=== PATIENT | male | born 1970 | race Caucasian/White ===

== ENCOUNTER 2017-06-19 13:06 | Inpatient (IN) ==
--- NOTE | 2017-06-19 14:03 | XRay Report ---
INDICATION: Dyspnea. Influenza. TECHNIQUE: PA and lateral upright chest x-ray COMPARISON: Chest x-rays dated 05/16/2017 and 03/02/2016 FINDINGS:Diaphragms are flattened and there is increased AP diameter of the chest. Appearance is consistent with underlying COPD. No change in heart size. There are diffuse interstitial infiltrates which are new since previous examination. Appearance is consistent with interstitial pneumonia. Viral pneumonia should be considered. No parenchymal consolidation. No parenchymal mass. There is a more focal density in the right midlung but no mass was present on the prior examination and this is not considered consistent with neoplasm. Follow-up radiographs recommended. Minimal blunting of the posterior costophrenic sulci consistent with tiny effusions. IMPRESSION: 1. Acute diffuse interstitial infiltrates. 2. Appearance is consistent with pneumonia and viral pneumonia is likely Interpreted and Authenticated by: Eliceo Hinkle 06/19/17
[2017-06-19 15:05] LABS: Basophils # (Auto) 0 K/mcL (0.0-0.3); Basophils % (Auto) 0 % (0.0-2.0); Eosinophils # (Auto) 0 K/mcL (0.0-0.7); Eosinophils % (Auto) 0.1 % (0.0-7.0); Granulocytes % (Auto) 85.4 % (38.0-78.0); Lymphocytes # (Auto) 1.3 K/mcL (1.5-4.8); Lymphocytes % (Auto) 5.8 % (15.5-49.0); Mean Cell Volume 90.5 fL (80.0-100.0); Mean Corpuscular HGB Conc 33.2 g/dL (31.0-36.0); Mean Corpuscular Hemoglobin 30.1 pg (26.0-34.0); Monocytes % (Auto) 8.7 % (1.0-12.0); Platelet Count 497 K/mcL (140-440); RBC 5.54 M/mcL (4.50-5.90); Red Cell Distribution Width 13.8 % (11.5-14.5)
[2017-06-19 15:22] LABS: ALT/SGPT 15 U/l (0-40); Albumin 3.8 gm/dL (3.2-5.2); Albumin/Globulin Ratio 0.8 (1.0-2.3); Alkaline Phosphatase 136 U/L (39-117); Blood Urea Nitrogen 15 mg/dl (6-20)
[2017-06-19] MEDS ORDERED: 0.9 % SODIUM CHLORIDE 1,000 ML IV ONE (15:23)
[2017-06-19] MEDS ORDERED: AZITHROMYCIN 500 MG in DEXTROSE 5% IN WATER 250 ML IV ONE (15:31)
[2017-06-19] MEDS ORDERED: IPRATROPIUM/ALBUTEROL 3 ML AMPUL.NEB NEB ONE ×2 (16:22→19:17)
[2017-06-19] MEDS ORDERED: cefTRIAXone 2 GM VIAL IV ONE ×2 (17:10→18:23)
[2017-06-19] MEDS ORDERED: VANCOMYCIN 1,500 MG in 0.9 % SODIUM CHLORIDE 500 ML IV ONE (17:10)
--- NOTE | 2017-06-19 17:25 | Internal Med History&Physical ---
Medical - H&P: HPI Patient information: Note initiated : 06/19/17 at 5:24 pm Service Date, if different from initiated Date: [] Patient: Austin Landry a 46 y/o M admitted on for Flu. Chief Complaint: [] History of present illness: Mr. Landry is a 46 year old Male with h/o PTSD/ h/o asthma, presents to the ER today with complaints of shortness of breath going on for the last 2 weeks. The patient notes that he has not been feeling well over the last 2 weeks, he had sick contacts with flu like symptoms and he also developed same, he was seen by his PCP and given 5 day course of tamiflu which he took, he finished his course 4 days ago, since then he has not been feeling well, he notes his breatihing has gotten worse, his is having headache and dizziness, abdominal pain, poor appetitie and worsening shortness of breath. He notes he is coughing up large amounts of sputum. Denies any hemoptysis. Given his worsening condition he decided to c ome to the ER for further evaluation. In the ER he was noted to be afebrile and tachcardic and tachypenic, he had elevated Wbc count to 23K, his lac was normal, HR 125, RR 25, his Chest X ray showed bi interstitial pneumonia. ABG was 7.46/40/57 The patient on my exam was in mild to moderate resp distress with tor exp wheezing, was admitted to the PCU for further management. All systems: reviewed and no additional remarkable complaints except as stated ( as per HPI) Medical - H&P: PMH Medical history: asthma anxiety ptsd smoker Hep C Surgical history: back surgery Family history: reviewed and not pertinent Social history: smoker, quit 2 weeks ago? h/o etoh use in the past h/o substance abuse including IV drugs in the past. denies active use Medical - H&P: Meds Home Medications Medication Instructions Recorded Confirmed Type Albuterol Sulfate [Albuterol 8.5 gm IH Q4HP PRN 02/16/15 05/18/17 History Sulfate Hfa] Azithromycin [Zithromax] 250 mg PO DAILY #4 tab 05/16/17 05/18/17 Rx Ipratropium/Albuterol [Duoneb] 3 ml NEB Q4HRT #60 ampul.neb 05/16/17 05/18/17 Rx predniSONE [Prednisone] 20 mg PO DAILY #23 tab 05/16/17 05/18/17 Rx Allergies Allergy/AdvReac Type Severity Reaction Status Date / Time codeine Allergy Verified 06/19/17 13:13 morphine Allergy Verified 05/18/17 11:35 Penicillins Allergy Verified 05/18/17 11:35 Medical - H&P: Exam - Constitutional Vitals: Temp Pulse Resp BP Pulse Ox 96.7 F L 125 H 26 H 144/102 94 06/19/17 13:09 06/19/17 14:12 06/19/17 13:09 06/19/17 14:10 06/19/17 14:12 Exam: GENERAL: The patient is a well-developed, well-nourished in no apparent distress. Is alert and oriented x3. VITAL SIGNS: Reviewed and as noted elsewhere. HEENT: Head is normocephalic and atraumatic. Extraocular muscles are intact. Pupils are equal, round, and reactive to light. Nares appeared normal. Mouth appears any without lesions. Mucous membranes are moist. NECK: Normal to inspection, Supple, No lymphadenopathy or thyromegaly. LUNGS: Air entry equal on both sides but significantly dimished bilaterally, tor exp wheeze present, no crackles or rhonchi noted. Pt was in mod resp distress ,needing accesory muscle use, and speaking 5-6 words at a time, HEART: achycardic rate and rhythm normal, S1 and S2 heard, no Gallop, S3 or Rub Noted, No Gross murmur heard. ABDOMEN: Soft, nontender, and nondistended. Positive bowel sounds. No hepatosplenomegaly was noted. EXTREMITIES: No cyanosis, clubbing, rash, lesions or edema. NEUROLOGIC: Cranial nerves II through XII are grossly intact. Motor and Sensory System Grossly Intact PSYCHIATRIC: Normal affect, Normal Mood. Appropriate Behavior. SKIN: No ulceration or wounds noted, No jaundice, No rash noted. Multiple tatoos Medical - H&P: Reslt - Labs CBC & Chem 7: 06/19/17 14:10 06/19/17 14:10 Labs: Short CBC 06/19/17 Range/Units 14:10 WBC 23.1 H (4.5-11.0) K/mcL Hgb 16.6 H (13.5-16.5) g/dL Hct 50.1 (41.0-55.0) % Plt Count 497 H (140-440) K/mcL BMP 06/19/17 14:10 Sodium 140 Potassium 3.7 Chloride 96 Carbon Dioxide 28 BUN 15 Creatinine 1.1 Glucose 116 H Calcium 9.3 Liver Function 06/19/17 Range/Units 14:10 Total Bilirubin 0.7 (0.0-1.0) mg/dL AST 21 (0-37) U/l ALT 15 (0-40) U/l Alkaline Phosphatase 136 H (39-117) U/L Albumin 3.8 (3.2-5.2) gm/dL Medical - H&P: A/P - Narrative A/P Narrative: A/P Acute Hypoxic Resp failure: pt was on 5L oxygen on my eval, was tachypneic using accessory muscles, will start him on bipap and see how he does, intubate if resp condition worsens. Pneumonia: Tor interstitial pneumonia, etiology likely viral with secondary bacterial infection. IV vanco, azithromycin, and rocephin, Po tamiflu to continue for now. Check HIV patient verbally consented Sepsis: due to above, lactate and bp is normal, IV fluids for now, monitor anxiety: Resume home meds once verifed, ativan prn DVT enoxaparin sq regular diet Full code.
[2017-06-19] MEDS ORDERED: VANCOMYCIN PER PHARMACY IV ONE (18:23)
[2017-06-19] MEDS ORDERED: ONDANSETRON 4 MG/2 ML VIAL IV PRN (18:23)
[2017-06-19] MEDS ORDERED: cefTRIAXone 2 GM in DEXTROSE 5% IN WATER 50 ML IV SCH (18:23)
[2017-06-19] MEDS ORDERED: ACETAMINOPHEN 325 MG TABLET PO PRN (18:23)
[2017-06-19] MEDS: IPRATROPIUM/ALBUTEROL 3 ML AMPUL.NEB NEB SCH ×2 (19:15→23:14)
[2017-06-19] MEDS ORDERED: VANCOMYCIN PER PHARMACY IV SCH (19:45)
[2017-06-19] MEDS: LORazepam 2 MG/ML VIAL IV PRN ×2 (20:00→23:45)
[2017-06-19] MEDS: methylPREDNISolone SOD SUCC 125 MG/2 ML VIAL IV SCH ×2 (20:00→21:53)
[2017-06-19] MEDS: ENOXAPARIN 40 MG/0.4 ML SYRINGE SQ SCH (20:00)
[2017-06-19] MEDS: VANCOMYCIN 1,500 MG in 0.9 % SODIUM CHLORIDE 500 ML IV SCH (20:02)
[2017-06-19] MEDS: OSELTAMIVIR PHOSPHATE 75 MG CAPSULE PO SCH (20:47)
--- NOTE | 2017-06-19 21:27 | Emergency Department Note ---
SOB HPI - General Chief Complaint: Shortness of Breath/Dyspnea Stated Complaint: Flu Time Seen by Provider: 06/19/17 13:35 Source: patient Mode of arrival: ambulatory Limitations: no limitations - History of Present Illness Patient presents today with severe cough, increased sputum production, and shortness of breath. Reports he was diagnosed with Influenza B at [facility] last week was given a prescription of Tamiflu which he took appropriately and finished 4 days ago, in the last 36 hours the cough and began to worsen, his aches and pains began worsen and his shortness of breath and inability to get a full breath worsened. States he has no energy and he's been coughing up a significant amount of greenish yellow phlegm, and feels like something heavy on his chest. Denies nausea vomiting diarrhea or fever, I did read the notes from [facility] MD Complaint: shortness of breath, cough Onset (ago): day(s) Context: recent illness Severity: severe Consistency/Duration: constant Improves with: nothing Worsens with: exertion, movement, coughing Known history of: COPD Associated symptoms: Reports: cough, sputum production, abdominal pain. Denies : fever, wheezing, rash Treatment prior to arrival: bronchodilator - Related Data Home oxygen amount: none Home Medications Medication Instructions Recorded Confirmed Albuterol Sulfate [Albuterol 8.5 gm IH Q4HP PRN 02/16/15 05/18/17 Sulfate Hfa] Previous Rx's Medication Instructions Recorded Azithromycin [Zithromax] 250 mg PO DAILY #4 tab 05/16/17 Ipratropium/Albuterol [Duoneb] 3 ml NEB Q4HRT #60 ampul.neb 05/16/17 predniSONE [Prednisone] 20 mg PO DAILY #23 tab 05/16/17 Allergies Allergy/AdvReac Type Severity Reaction Status Date / Time codeine Allergy Severe Anaphylaxis Verified 06/19/17 20:32 morphine Allergy Verified 05/18/17 11:35 Penicillins Allergy Verified 05/18/17 11:35 Review of Systems All systems ED: reviewed and negative except as stated. Past Medical History - Past Medical History Medical history: Reports: asthma, liver disease (Hepatitis), other (Hearing loss ). Denies: cancer, COPD, DM, hypertension (But has been elevated in the past.) , thyroid disease Psychiatric history: Reports: anxiety, PTSD Surgical history ED: Reports: non-contributory - Social History smoking status: Former smoker Alcohol use: Reports: Occasionally Drug use: Reports: marijuana Physical Exam Limitations: no limitations General appearance: alert, anxious Head: atraumatic, normocephalic Eye: Present: PERRL ENT: normal exam Neck: Present: normal inspection, full ROM Location: decreased breath sounds: Left, Right, Upper, Lower Abdominal: Present: soft, tenderness, guarding (with palpation), normal bowel sounds. Absent: distention, rebound, rigidity Back: Present: tenderness, muscle spasm, paraspinal tenderness. Absent: full ROM Neurological: Present: alert, oriented X3 Psychiatric: Present: anxious Skin: Present: warm, dry. Absent: rash Course Vital Signs Temperature 96.7 F L 06/19/17 13:09 Pulse Rate 123 H 06/19/17 13:09 Respiratory Rate 26 H 06/19/17 13:09 Blood Pressure 186/163 06/19/17 13:09 Pulse Oximetry (%) 90 06/19/17 13:09 Temperature 96.7 F L 06/19/17 18:21 Pulse Rate 121 H 06/19/17 21:00 Respiratory Rate 26 H 06/19/17 21:00 Blood Pressure 148/91 06/19/17 21:00 Pulse Oximetry (%) 94 06/19/17 21:00 Shortness of Breath/Dyspnea - Lab Data Lab results reviewed: Yes I reviewed the patient's lab results. Result diagrams: 06/19/17 14:10 06/19/17 14:10 Lab Results 06/19/17 06/19/17 06/19/17 Range/Units 14:10 14:10 14:10 WBC 23.1 H (4.5-11.0) K/mcL RBC 5.54 (4.50-5.90) M/mcL Hgb 16.6 H (13.5-16.5) g/dL Hct 50.1 (41.0-55.0) % MCV 90.5 (80.0-100.0) fL MCH 30.1 (26.0-34.0) pg MCHC 33.2 (31.0-36.0) g/dL RDW 13.8 (11.5-14.5) % Plt Count 497 H (140-440) K/mcL MPV 8.8 (7.4-10.4) fL Gran % 85.4 H (38.0-78.0) % Lymph % (Auto) 5.8 L (15.5-49.0) % [place] % (Auto) 8.7 (1.0-12.0) % Eos % (Auto) 0.1 (0.0-7.0) % Baso % (Auto) 0 (0.0-2.0) % Gran # 19.7 H (1.8-8.0) K/mcL Lymph # (Auto) 1.3 L (1.5-4.8) K/mcL [place] # (Auto) 2.0 H (0.1-0.9) K/mcL Eos # (Auto) 0 (0.0-0.7) K/mcL Baso # (Auto) 0 (0.0-0.3) K/mcL Sodium 140 (133-145) mmol/L Potassium 3.7 (3.3-5.1) mmol/L Chloride 96 (96-108) mmol/L Carbon Dioxide 28 (22-30) mmol/L Anion Gap 16.0 (8-16) BUN 15 (6-20) mg/dl Creatinine 1.1 (0.7-1.2) mg/dl GFR Calculation 81 Glucose 116 H (70-105) mg/dL Calcium 9.3 (8.6-10.4) mg/dl Total Bilirubin 0.7 (0.0-1.0) mg/dL AST 21 (0-37) U/l ALT 15 (0-40) U/l Alkaline Phosphatase 136 H (39-117) U/L Total Protein 8.4 (5.9-8.4) gm/dL Albumin 3.8 (3.2-5.2) gm/dL Globulin 4.6 H (2.2-3.7) gm/dL Albumin/Globulin Ratio 0.8 L (1.0-2.3) HIV 1&2 Ag/Ab, 4th Gen Non-reactive - Radiology Data Radiology results reviewed: Yes I reviewed the patient's radiology results. Disposition Pt seen by SAWMILLING OPERATOR/PA only: No Clinical Impression: Pneumonia Summary: (-) Flu Swab Discussed this case on multiple occasions with Dr. Munoz Discussed with the patient and his , with his laboratory workup and x-rays, and admittance to the hospital for further evaluation and treatment, I called the hospitalist, Dr. Albright, who came down and evaluated the patient, he asked me to give the patient Rocephin 2 gram and Vancomycin 1500 mg which we did and admitted him, Patient was turned over to Dr. Albright Disposition: Xfer As Inpt ([facility]) Condition: Undetermined
[2017-06-19] MEDS: 0.9 % SODIUM CHLORIDE 10 ML SYRINGE IV SCH (21:52)
[2017-06-20] MEDS: IPRATROPIUM/ALBUTEROL 3 ML AMPUL.NEB NEB SCH ×6 (02:23→22:46)
[2017-06-20 05:02] LABS: Basophils # (Auto) 0 K/mcL (0.0-0.3); Basophils % (Auto) 0 % (0.0-2.0); Eosinophils # (Auto) 0 K/mcL (0.0-0.7); Eosinophils % (Auto) 0 % (0.0-7.0); Granulocytes % (Auto) 93.1 % (38.0-78.0); Lymphocytes # (Auto) 1.2 K/mcL (1.5-4.8); Lymphocytes % (Auto) 4.6 % (15.5-49.0); Mean Cell Volume 90.2 fL (80.0-100.0); Mean Corpuscular HGB Conc 32.9 g/dL (31.0-36.0); Mean Corpuscular Hemoglobin 29.7 pg (26.0-34.0); Monocytes # (Auto) 0.6 K/mcL (0.1-0.9); Monocytes % (Auto) 2.3 % (1.0-12.0); Platelet Count 507 K/mcL (140-440); RBC 5.16 M/mcL (4.50-5.90)
[2017-06-20 05:18] LABS: ALT/SGPT 16 U/l (0-40); Albumin 3.1 gm/dL (3.2-5.2); Albumin/Globulin Ratio 0.7 (1.0-2.3); Alkaline Phosphatase 150 U/L (39-117); Bilirubin,Direct < 0.2 mg/dL (0.0-0.3); Blood Urea Nitrogen 16 mg/dl (6-20); Gamma Glutamyl Transpeptidase 67 U/L (8-61); Uric Acid 5.1 mg/dL (2.5-8.0)
[2017-06-20] MEDS: methylPREDNISolone SOD SUCC 125 MG/2 ML VIAL IV SCH ×3 (05:58→21:49)
[2017-06-20] MEDS: 0.9 % SODIUM CHLORIDE 10 ML SYRINGE IV SCH ×3 (05:59→21:50)
[2017-06-20] MEDS: PANTOPRAZOLE 40 MG TABLET PO SCH (07:30)
[2017-06-20] MEDS: OSELTAMIVIR PHOSPHATE 75 MG CAPSULE PO SCH ×2 (08:26→20:47)
[2017-06-20] MEDS: AZITHROMYCIN 250 MG TABLET PO SCH (08:26)
[2017-06-20] MEDS: VANCOMYCIN 1,500 MG in 0.9 % SODIUM CHLORIDE 500 ML IV SCH ×2 (08:26→20:46)
[2017-06-20] MEDS: ENOXAPARIN 40 MG/0.4 ML SYRINGE SQ SCH (08:26)
[2017-06-20] MEDS: cefTRIAXone 2 GM VIAL IV SCH (08:28)
--- NOTE | 2017-06-20 08:46 | Emergency Department Note ---
ED Note Addendum Note Addendum: I saw this patient with Konstantin Olivares-please see his note. I agree with his evaluation management and documentation. In particular this patient is having respiratory complications of influenza B and needed to be admitted
--- NOTE | 2017-06-20 13:06 | Internal Med Progress Note ---
Medical - PN: Subj Patient information: Note initiated : 06/20/17 at 1:02 pm Service Date, if different from initiated Date: [] Patient: Austin Landry a 46 y/o M admitted on 06/19/17 for Flu. Chief Complaint: [] Interval history: Mr. Landry is a 46 year old Male with h/o PTSD/ h/o asthma, presents to the ER today with complaints of shortness of breath going on for the last 2 weeks. The patient notes that he has not been feeling well over the last 2 weeks, he had sick contacts with flu like symptoms and he also developed same, he was seen by his PCP and given 5 day course of tamiflu which he took, he finished his course 4 days ago, since then he has not been feeling well, he notes his breatihing has gotten worse, his is having headache and dizziness, abdominal pain, poor appetitie and worsening shortness of breath. He notes he is coughing up large amounts of sputum. Denies any hemoptysis. Given his worsening condition he decided to c ome to the ER for further evaluation. In the ER he was noted to be afebrile and tachcardic and tachypenic, he had elevated Wbc count to 23K, his lac was normal, HR 125, RR 25, his Chest X ray showed bi interstitial pneumonia. ABG was 7.46/40/57 The patient on my exam was in mild to moderate resp distress with tor exp wheezing, was admitted to the PCU for further management. Jun 20 Patient seen examined, still has cough,b ut feels much better was on bipap all night this AM on 7-8L oxygen but much less tachypenic wbc however worsened today,b ut pt is clinically better. Pertinent ROS: Denies headache, dizziness Denies chest pain, palpitations stable, slightly improving cough and shortness of breath Denies abdominal pain, nausea or vomiting. - Constitutional Vitals: Vital Signs Temp Pulse Resp BP Pulse Ox 97.2 F 99 H 20 118/89 94 06/20/17 09:02 06/20/17 11:33 06/20/17 11:33 06/20/17 11:02 06/20/17 11:02 Period Temp Pulse Resp BP Sys/Haile Pulse Ox Last 24 Hr 96.7 F-99.7 F 41-136 17-31 118-186/79-163 78-97 Intake and Output 06/19/17 06/20/17 06/20/17 21:59 05:59 13:59 Intake Total 2330 / 2330 540 / 540 Output Total 550 / 550 Balance 2330 / 2330 -10 / -10 Weight 197 lb Intake & Output: Intake & Output 06/19/17 06/20/17 06/20/17 21:59 05:59 13:59 Intake Total 2330 / 2330 540 / 540 Output Total 550 / 550 Balance 2330 / 2330 -10 / -10 Weight 197 lb Intake: IV 1250 / 1250 Sodium Chloride 0.9% 1,000 ml @ 1000 / 1000 Wide Open IV BOLUS ONE Rx#: [id number] Zithromax 500 mg In Dextrose 5% 250 / 250 in Water 250 ml @ 250 mls/hr IV ONCE ONE Rx#:[id number] Oral 1080 / 1080 540 / 540 Output: Urine Catheter Amount 550 / 550 Other: # Voids 1 Exam: Constitutional; Afebrile, cooperative, alert, not in distress. Eyes- No icterus, , No periorbital swelling Ears- Ext ear normal, hearing normal to conversation. Neck- Midline trachea, supple Respiratory system: Air Entry equal on both sides, improved from yesterday, tor crackles basilar, prolonged exp phase. CVS- Rate tachycardic rhythm regular, S1,S2 heard, no gallop, no rub. Abdomen- Soft nontender abdomen, no organomegaly, no tenderness, no guarding or rigidity, [employer]ICIAN- AOOx3, moving all extremities, no gross focal deficit noted. Medical - PN: Obj Da - Labs CBC & Chem 7: 06/20/17 03:45 06/20/17 03:45 Labs: Abnormal Lab Results 06/20/17 06/20/17 06/19/17 03:45 03:45 14:10 WBC 25.1 H Hgb Plt Count 507 H Gran % 93.1 H Lymph % (Auto) 4.6 L Gran # 23.3 H Lymph # (Auto) 1.2 L [place] # (Auto) Glucose 184 H 116 H Phosphorus 5.2 H Magnesium 2.8 H GGT 67 H Alkaline Phosphatase 150 H 136 H Albumin 3.1 L Globulin 4.6 H 4.6 H Albumin/Globulin Ratio 0.7 L 0.8 L 06/19/17 14:10 WBC 23.1 H Hgb 16.6 H Plt Count 497 H Gran % 85.4 H Lymph % (Auto) 5.8 L Gran # 19.7 H Lymph # (Auto) 1.3 L [place] # (Auto) 2.0 H Glucose Phosphorus Magnesium GGT Alkaline Phosphatase Albumin Globulin Albumin/Globulin Ratio Meds: Medications Acetaminophen (Tylenol) 650 mg PO Q4-6HP PRN PRN Reason: PAIN/FEVER > 101 Albuterol/Ipratropium (Duoneb) 3 ml NEB Q4HRT [facility] Last Admin: 06/20/17 11:31 Dose: 3 ml Azithromycin (Zithromax) 250 mg PO DAILY [facility] Stop: 06/23/17 09:01 Last Admin: 06/20/17 08:26 Dose: 250 mg Ceftriaxone Sodium (Rocephin) 2 gm IV Q24H [facility] Last Admin: 06/20/17 08:28 Dose: 2 gm Enoxaparin Sodium (Lovenox) 40 mg SQ DAILY [facility] Last Admin: 06/20/17 08:26 Dose: 40 mg Vancomycin HCl 1,500 mg/ (Sodium Chloride) 500 mls @ 333.3 mls/hr IV Q12H [facility] Last Admin: 06/20/17 08:26 Dose: 333 mls/hr Lorazepam (Ativan) 0.5 mg IV Q4HP PRN PRN Reason: ANXIETY/SEDATION Last Admin: 06/19/17 23:45 Dose: 0.5 mg Methylprednisolone Sodium Succinate (Solu-Medrol) 62.5 mg IV Q8 [facility] Last Admin: 06/20/17 05:58 Dose: 62.5 mg Ondansetron HCl (Zofran) 4 mg IV Q4-6HP PRN PRN Reason: Nausea And Vomiting Oseltamivir Phosphate (Tamiflu) 75 mg PO BID [facility] Stop: 06/24/17 09:01 Last Admin: 06/20/17 08:26 Dose: 75 mg Pantoprazole Sodium (Protonix) 40 mg PO QAMAC [facility] Last Admin: 06/20/17 07:30 Dose: 40 mg Sodium Chloride (Saline Flush) 10 ml IV Q8 [facility] Last Admin: 06/20/17 05:59 Dose: 10 ml Vancomycin HCl (Vancomycin Per Pharmacy) 1 order IV UD [facility] Medical - PN: A/P - Time Spent With Patient Total time spent is greater than 50% in coordination of care (as documented) at patient's floor/unit and/or counseling patient: - Narrative A/P Narrative: A/P Acute Hypoxic Resp failure: on bipap overnight, on 7-8 L oxygen via [place] this AM, prn biapap for now, monitor closely, Pneumonia: Tor interstitial pneumonia, etiology likely viral with secondary bacterial infection. IV vanco, azithromycin, and rocephin, Po tamiflu to continue for now. HIV is negative. Sepsis: due to above, lactate and bp is normal, IV fluids for now, monitor, clinically improving but wbc is high Asthma exacerbtaion: on iv steroids, and duonebs, breathing is better, continue same, anxiety: ativan prn DVT enoxaparin sq regular diet Full code. Medical - PN: Qual - VTE Deep Vein Thrombosis/Pulmonary Embolism Present on Admission: No
[2017-06-21] MEDS: IPRATROPIUM/ALBUTEROL 3 ML AMPUL.NEB NEB SCH ×6 (02:53→22:44)
[2017-06-21] MEDS: methylPREDNISolone SOD SUCC 125 MG/2 ML VIAL IV SCH ×2 (05:43→13:46)
[2017-06-21] MEDS: 0.9 % SODIUM CHLORIDE 10 ML SYRINGE IV SCH ×4 (05:44→21:15)
[2017-06-21 05:53] LABS: Basophils # (Auto) 0 K/mcL (0.0-0.3); Basophils % (Auto) 0 % (0.0-2.0); Eosinophils # (Auto) 0 K/mcL (0.0-0.7); Eosinophils % (Auto) 0 % (0.0-7.0); Granulocytes % (Auto) 90.5 % (38.0-78.0); Lymphocytes # (Auto) 1.6 K/mcL (1.5-4.8); Lymphocytes % (Auto) 5.6 % (15.5-49.0); Mean Cell Volume 90.5 fL (80.0-100.0); Mean Corpuscular HGB Conc 33.2 g/dL (31.0-36.0); Monocytes # (Auto) 1.1 K/mcL (0.1-0.9); Monocytes % (Auto) 3.9 % (1.0-12.0); Platelet Count 440 K/mcL (140-440); RBC 4.63 M/mcL (4.50-5.90); Red Cell Distribution Width 13.9 % (11.5-14.5)
[2017-06-21 06:26] LABS: ALT/SGPT 30 U/l (0-40); Albumin 2.4 gm/dL (3.2-5.2); Albumin/Globulin Ratio 0.6 (1.0-2.3); Alkaline Phosphatase 118 U/L (39-117); Bilirubin,Direct < 0.2 mg/dL (0.0-0.3); Blood Urea Nitrogen 22 mg/dl (6-20); Gamma Glutamyl Transpeptidase 61 U/L (8-61); Uric Acid 5.2 mg/dL (2.5-8.0)
[2017-06-21] MEDS: PANTOPRAZOLE 40 MG TABLET PO SCH (09:00)
[2017-06-21] MEDS: VANCOMYCIN 1,500 MG in 0.9 % SODIUM CHLORIDE 500 ML IV SCH ×2 (09:30→21:15)
[2017-06-21] MEDS: ENOXAPARIN 40 MG/0.4 ML SYRINGE SQ SCH (09:44)
[2017-06-21] MEDS: cefTRIAXone 2 GM VIAL IV SCH (09:44)
[2017-06-21] MEDS: OSELTAMIVIR PHOSPHATE 75 MG CAPSULE PO SCH ×2 (09:45→21:14)
[2017-06-21] MEDS: AZITHROMYCIN 250 MG TABLET PO SCH (09:46)
[2017-06-21] MEDS ORDERED: FLU VACC QS2017-18 36MOS UP/PF 60 MCG/0.5 ML SYRINGE IM ONE (10:00)
--- NOTE | 2017-06-21 10:46 | XRay Report ---
CLINICAL INFORMATION: Follow up diffuse interstitial disease COMPARISON: 05/16/2017 and 06/19/2017 FINDINGS: Cardiomediastinal silhouette and pulmonary vessels are normal. Mild interstitial disease throughout both lungs shows slight improvement since exam two days prior. Tiny bilateral pleural effusions are unchanged. Bones and soft tissues are normal. IMPRESSION: Mild diffuse interstitial disease - slight improvement since exam two days ago. Primary diagnostic consideration is viral pneumonitis Interpreted and Authenticated by: Eliceo Sequeira 06/21/17
[2017-06-21] MEDS ORDERED: guaiFENesin 600 MG TAB.SR.12H PO PRN ×2 (11:59→13:47)
[2017-06-21] MEDS ORDERED: BENZOCAINE/MENTHOL 1 LOZENGE PO PRN ×2 (12:00→13:47)
[2017-06-21] MEDS ORDERED: LORazepam 2 MG/ML VIAL IV PRN (13:47)
[2017-06-21] MEDS ORDERED: ONDANSETRON 4 MG/2 ML VIAL IV PRN (13:47)
[2017-06-21] MEDS ORDERED: VANCOMYCIN PER PHARMACY IV SCH (13:47)
[2017-06-21] MEDS ORDERED: methylPREDNISolone SOD SUCC 125 MG/2 ML VIAL IV SCH (14:00)
--- NOTE | 2017-06-21 20:31 | Internal Med Progress Note ---
Medical - PN: Subj Patient information: Note initiated : 06/21/17 at 8:28 pm Service Date, if different from initiated Date: [] Patient: Austin Landry a 46 y/o M admitted on 06/19/17 for Flu/Hypoxic Respiratory Failure, Pneumonia, Sepsis. Chief Complaint: [] Interval history: Mr. Landry is a 46 year old Male with h/o PTSD/ h/o asthma, presents to the ER today with complaints of shortness of breath going on for the last 2 weeks. The patient notes that he has not been feeling well over the last 2 weeks, he had sick contacts with flu like symptoms and he also developed same, he was seen by his PCP and given 5 day course of tamiflu which he took, he finished his course 4 days ago, since then he has not been feeling well, he notes his breatihing has gotten worse, his is having headache and dizziness, abdominal pain, poor appetitie and worsening shortness of breath. He notes he is coughing up large amounts of sputum. Denies any hemoptysis. Given his worsening condition he decided to c ome to the ER for further evaluation. In the ER he was noted to be afebrile and tachcardic and tachypenic, he had elevated Wbc count to 23K, his lac was normal, HR 125, RR 25, his Chest X ray showed bi interstitial pneumonia. ABG was 7.46/40/57 The patient on my exam was in mild to moderate resp distress with tor exp wheezing, was admitted to the PCU for further management. Jun 20 Patient seen examined, still has cough,b ut feels much better was on bipap all night this AM on 7-8L oxygen but much less tachypenic wbc however worsened today,b ut pt is clinically better. Jun 21 patient seen examined, no acute overnight events off bipap but still on 4 L oxygen cough and expectoration better sputum cx shows h influenza still on iv steroids wbc worsened today, but clinicall patient is showing signs of improvement. xfer to tele status. Pertinent ROS: Denies headache, dizziness Denies chest pain, palpitations Imrpoving cough and shortness of breath Denies abdominal pain, nausea or vomiting. - Constitutional Vitals: Vital Signs Temp Pulse Resp BP Pulse Ox 99.2 F H 66 16 126/89 95 06/21/17 18:47 06/21/17 19:09 06/21/17 19:09 06/21/17 18:47 06/21/17 19:02 Period Temp Pulse Resp BP Sys/Haile Pulse Ox Last 24 Hr 97.1 F-99.2 F 66-92 13-22 93-144/55-89 90-99 Intake and Output 06/21/17 06/21/17 06/21/17 05:59 13:59 21:59 Intake Total 860 / 860 1440 / 1440 120 / 120 Output Total 475 / 475 350 / 350 700 / 700 Balance 385 / 385 1090 / 1090 -580 / -580 Weight 193 lb 8 oz Patient Weight 06/22/17 05:59 Weight 193 lb 8 oz Intake & Output: Intake & Output 06/21/17 06/21/17 06/21/17 05:59 13:59 21:59 Intake Total 860 / 860 1440 / 1440 120 / 120 Output Total 475 / 475 350 / 350 700 / 700 Balance 385 / 385 1090 / 1090 -580 / -580 Weight 193 lb 8 oz Intake: IV 500 / 500 500 / 500 Vancomycin 1,500 mg In Sodium 500 / 500 500 / 500 Chloride 0.9% 500 ml @ 333.3 mls/hr IV Q12H [facility] Rx#: [id number] Oral 360 / 360 940 / 940 120 / 120 Output: Void Amount 475 / 475 350 / 350 700 / 700 Other: Meal Lunch Dinner Percent of Meal Consumed 100% 100% Feeding Ability Independent Independent # Voids 1 0 Exam: Constitutional; Afebrile, cooperative, alert, not in distress. Eyes- No icterus, , No periorbital swelling Ears- Ext ear normal, hearing normal to conversation. Neck- Midline trachea, supple Respiratory system: Air Entry equal on both sides, tor proloned exp phase, minimal wheeze, much improved from yesterday. CVS- Rate rhythm regular, S1,S2 heard, no gallop, no rub. Abdomen- Soft nontender abdomen, no organomegaly, no tenderness, no guarding or rigidity, SENIOR COMPLIANCE OFFICER- AOOx3, moving all extremities, no gross focal deficit noted. Medical - PN: Obj Da - Labs CBC & Chem 7: 06/21/17 03:55 06/21/17 03:55 Labs: Abnormal Lab Results 06/21/17 06/21/1718 03:55 03:55 03:45 WBC 28.0 H Hgb Plt Count Gran % 90.5 H Lymph % (Auto) 5.6 L Gran # 25.3 H Lymph # (Auto) [place] # (Auto) 1.1 H BUN 22 H Glucose 214 H 184 H Calcium 8.5 L Phosphorus 5.2 H Magnesium 2.7 H 2.8 H GGT 67 H Alkaline Phosphatase 118 H 150 H Albumin 2.4 L 3.1 L Globulin 4.1 H 4.6 H Albumin/Globulin Ratio 0.6 L 0.7 L 06/20/17 06/19/17 06/19/17 03:45 14:10 14:10 WBC 25.1 H 23.1 H Hgb 16.6 H Plt Count 507 H 497 H Gran % 93.1 H 85.4 H Lymph % (Auto) 4.6 L 5.8 L Gran # 23.3 H 19.7 H Lymph # (Auto) 1.2 L 1.3 L [place] # (Auto) 2.0 H BUN Glucose 116 H Calcium Phosphorus Magnesium GGT Alkaline Phosphatase 136 H Albumin Globulin 4.6 H Albumin/Globulin Ratio 0.8 L Meds: Medications Acetaminophen (Tylenol) 650 mg PO Q4-6HP PRN PRN Reason: PAIN/FEVER > 101 Albuterol/Ipratropium (Duoneb) 3 ml NEB Q4HRT [facility] Last Admin: 06/21/17 18:59 Dose: 3 ml Azithromycin (Zithromax) 250 mg PO DAILY [facility] Stop: 06/23/17 09:01 Ceftriaxone Sodium (Rocephin) 2 gm IV Q24H [facility] Enoxaparin Sodium (Lovenox) 40 mg SQ DAILY [facility] Guaifenesin (Mucinex) 600 mg PO BIDP PRN PRN Reason: Congestion Vancomycin HCl 1,500 mg/ (Sodium Chloride) 500 mls @ 333.3 mls/hr IV Q12H [facility] Lorazepam (Ativan) 0.5 mg IV Q4HP PRN PRN Reason: ANXIETY/SEDATION Methylprednisolone Sodium Succinate (Solu-Medrol) 62.5 mg IV Q8 [facility] Last Admin: 06/21/17 13:50 Dose: Not Given Ondansetron HCl (Zofran) 4 mg IV Q4-6HP PRN PRN Reason: Nausea And Vomiting Oseltamivir Phosphate (Tamiflu) 75 mg PO BID [facility] Stop: 06/24/17 09:01 Pantoprazole Sodium (Protonix) 40 mg PO QAMAC [facility] Sodium Chloride (Saline Flush) 10 ml IV Q8 [facility] Last Admin: 06/21/17 13:50 Dose: Not Given Throat Lozenges (Cepacol) 1 lozenge PO PRN PRN PRN Reason: Sore Throat Vancomycin HCl (Vancomycin Per Pharmacy) 1 order IV UD [facility] Medical - PN: A/P - Time Spent With Patient Total time spent is greater than 50% in coordination of care (as documented) at patient's floor/unit and/or counseling patient: - Narrative A/P Narrative: A/P Acute Hypoxic Resp failure: on bipap overnight, on 4 L oxygen via [place] this AM, clinically improving. Pneumonia: Tor interstitial pneumonia, etiology likely viral with secondary bacterial infection (h influenzae on sputum cx) . IV vanco, azithromycin, and rocephin, Po tamiflu to continue for now. HIV is negative. plan to descalate ABX tomorrow. Sepsis: imjproving, rising wbc could be response to steroids, Repeat X ray shows some improvement in Chest x ray. Asthma exacerbtaion: on iv steroids, and duonebs, breathing is better, continue same, change to oral steroids from tomorrow AM. anxiety: ativan prn DVT enoxaparin sq regular diet Full code. Medical - PN: Qual - VTE Deep Vein Thrombosis/Pulmonary Embolism Present on Admission: No
[2017-06-22] MEDS: IPRATROPIUM/ALBUTEROL 3 ML AMPUL.NEB NEB SCH ×6 (02:37→22:49)
[2017-06-22 05:29] LABS: Basophils # (Auto) 0 K/mcL (0.0-0.3); Basophils % (Auto) 0 % (0.0-2.0); Eosinophils # (Auto) 0 K/mcL (0.0-0.7); Eosinophils % (Auto) 0 % (0.0-7.0); Granulocytes % (Auto) 88.4 % (38.0-78.0); Lymphocytes # (Auto) 1.8 K/mcL (1.5-4.8); Mean Cell Volume 90.9 fL (80.0-100.0); Mean Corpuscular HGB Conc 32.8 g/dL (31.0-36.0); Mean Corpuscular Hemoglobin 29.9 pg (26.0-34.0); Monocytes # (Auto) 0.3 K/mcL (0.1-0.9); Monocytes % (Auto) 1.6 % (1.0-12.0); Platelet Count 412 K/mcL (140-440); RBC 4.55 M/mcL (4.50-5.90); Red Cell Distribution Width 14.2 % (11.5-14.5)
[2017-06-22] MEDS: ACETAMINOPHEN 325 MG TABLET PO PRN ×2 (05:42→09:49)
[2017-06-22] MEDS: 0.9 % SODIUM CHLORIDE 10 ML SYRINGE IV SCH ×3 (05:43→22:12)
[2017-06-22 05:51] LABS: ALT/SGPT 28 U/l (0-40); Albumin 2.9 gm/dL (3.2-5.2); Albumin/Globulin Ratio 0.9 (1.0-2.3); Alkaline Phosphatase 100 U/L (39-117); Bilirubin,Direct < 0.2 mg/dL (0.0-0.3); Blood Urea Nitrogen 24 mg/dl (6-20); Gamma Glutamyl Transpeptidase 56 U/L (8-61); Uric Acid 5.1 mg/dL (2.5-8.0)
[2017-06-22] MEDS ORDERED: PANTOPRAZOLE 40 MG TABLET PO SCH (07:30)
[2017-06-22] MEDS ORDERED: predniSONE 20 MG TABLET PO SCH (08:00)
[2017-06-22] MEDS ORDERED: cefTRIAXone 2 GM VIAL IV SCH (09:00)
[2017-06-22] MEDS ORDERED: AZITHROMYCIN 250 MG TABLET PO SCH (09:00)
[2017-06-22] MEDS ORDERED: ENOXAPARIN 40 MG/0.4 ML SYRINGE SQ SCH (09:00)
[2017-06-22] MEDS: OSELTAMIVIR PHOSPHATE 75 MG CAPSULE PO SCH ×2 (09:49→22:12)
[2017-06-22] MEDS: VANCOMYCIN 1,500 MG in 0.9 % SODIUM CHLORIDE 500 ML IV SCH (09:51)
--- NOTE | 2017-06-22 15:45 | Internal Med Progress Note ---
Medical - PN: Subj Patient information: Note initiated : 06/22/17 at 3:42 pm Service Date, if different from initiated Date: [] Patient: Austin Landry a 46 y/o M admitted on 06/19/17 for Flu/Hypoxic Respiratory Failure, Pneumonia, Sepsis. Chief Complaint: [] Interval history: Mr. Landry is a 46 year old Male with h/o PTSD/ h/o asthma, presents to the ER today with complaints of shortness of breath going on for the last 2 weeks. The patient notes that he has not been feeling well over the last 2 weeks, he had sick contacts with flu like symptoms and he also developed same, he was seen by his PCP and given 5 day course of tamiflu which he took, he finished his course 4 days ago, since then he has not been feeling well, he notes his breatihing has gotten worse, his is having headache and dizziness, abdominal pain, poor appetitie and worsening shortness of breath. He notes he is coughing up large amounts of sputum. Denies any hemoptysis. Given his worsening condition he decided to c ome to the ER for further evaluation. In the ER he was noted to be afebrile and tachcardic and tachypenic, he had elevated Wbc count to 23K, his lac was normal, HR 125, RR 25, his Chest X ray showed bi interstitial pneumonia. ABG was 7.46/40/57 The patient on my exam was in mild to moderate resp distress with tor exp wheezing, was admitted to the PCU for further management. Jun 20 Patient seen examined, still has cough,b ut feels much better was on bipap all night this AM on 7-8L oxygen but much less tachypenic wbc however worsened today,b ut pt is clinically better. Jun 21 patient seen examined, no acute overnight events off bipap but still on 4 L oxygen cough and expectoration better sputum cx shows h influenza still on iv steroids wbc worsened today, but clinicall patient is showing signs of improvement. xfer to tele status. jun 22 patient seen examinedk had dry cough now, feels better, wbc trending down still has sob on exertion, on 3L oxygen on PO steroids. Pertinent ROS: Denies headache, dizziness Denies chest pain, palpitations IMproving cough and shortness of breath Denies abdominal pain, nausea or vomiting. - Constitutional Vitals: Vital Signs Temp Pulse Resp BP Pulse Ox 97.4 F 85 16 140/102 93 06/22/17 12:00 06/22/17 15:26 06/22/17 15:26 06/22/17 12:00 06/22/17 12:00 Period Temp Pulse Resp BP Sys/Haile Pulse Ox Last 24 Hr 96.8 F-99.2 F 65-85 16-24 126-144/84-102 92-96 Intake and Output 06/22/17 06/22/17 06/22/17 05:59 13:59 21:59 Intake Total 1050 / 1050 1380 / 1380 Output Total 1425 / 1425 300 / 300 Balance -375 / -375 1080 / 1080 Intake & Output: Intake & Output 06/22/17 06/22/17 06/22/17 05:59 13:59 21:59 Intake Total 1050 / 1050 1380 / 1380 Output Total 1425 / 1425 300 / 300 Balance -375 / -375 1080 / 1080 Intake: IV 500 / 500 500 / 500 Vancomycin 1,500 mg In Sodium 500 / 500 500 / 500 Chloride 0.9% 500 ml @ 333.3 mls/hr IV Q12H [facility] Rx#: [id number] Oral 550 / 550 880 / 880 Output: Void Amount 1425 / 1425 300 / 300 Other: Meal Lunch Percent of Meal Consumed 75% Feeding Ability Independent # Voids 1 # Bowel Movements 1 Exam: Constitutional; Afebrile, cooperative, alert, not in distress. Eyes- No icterus, , No periorbital swelling Ears- Ext ear normal, hearing normal to conversation. Neck- Midline trachea, supple Respiratory system: Air Entry equal on both sides,tor crackles upper mid and lower zones, very mild, CVS- Rate rhythm regular, S1,S2 heard, no gallop, no rub. Abdomen- Soft nontender abdomen, no organomegaly, no tenderness, no guarding or rigidity, BEHAVIORAL INTERVENTION SPECIALIST- AOOx3, moving all extremities, no gross focal deficit noted. Medical - PN: Obj Da - Labs CBC & Chem 7: 06/22/17 03:40 06/22/17 03:40 Labs: Abnormal Lab Results 06/22/17 06/22/17 06/21/17 03:40 03:40 03:55 WBC 18.5 H Plt Count Gran % 88.4 H Lymph % (Auto) 10.0 L Gran # 16.4 H Lymph # (Auto) [place] # (Auto) BUN 24 H 22 H Glucose 118 H 214 H Calcium 8.2 L 8.5 L Phosphorus Magnesium 2.7 H GGT Alkaline Phosphatase 118 H Albumin 2.9 L 2.4 L Globulin 4.1 H Albumin/Globulin Ratio 0.9 L 0.6 L 06/21/17 06/20/17 06/20/17 03:55 03:45 03:45 WBC 28.0 H 25.1 H Plt Count 507 H Gran % 90.5 H 93.1 H Lymph % (Auto) 5.6 L 4.6 L Gran # 25.3 H 23.3 H Lymph # (Auto) 1.2 L [place] # (Auto) 1.1 H BUN Glucose 184 H Calcium Phosphorus 5.2 H Magnesium 2.8 H GGT 67 H Alkaline Phosphatase 150 H Albumin 3.1 L Globulin 4.6 H Albumin/Globulin Ratio 0.7 L Meds: Medications Acetaminophen (Tylenol) 650 mg PO Q4-6HP PRN PRN Reason: PAIN/FEVER > 101 Last Admin: 06/22/17 09:49 Dose: 650 mg Albuterol/Ipratropium (Duoneb) 3 ml NEB Q4HRT [facility] Last Admin: 06/22/17 15:20 Dose: 3 ml Azithromycin (Zithromax) 250 mg PO DAILY [facility] Stop: 06/23/17 09:01 Last Admin: 06/22/17 09:49 Dose: 250 mg Ceftriaxone Sodium (Rocephin) 2 gm IV Q24H [facility] Last Admin: 06/22/17 09:48 Dose: 2 gm Enoxaparin Sodium (Lovenox) 40 mg SQ DAILY [facility] Last Admin: 06/22/17 09:49 Dose: 40 mg Guaifenesin (Mucinex) 600 mg PO BIDP PRN PRN Reason: Congestion Last Admin: 06/22/17 09:49 Dose: 600 mg Vancomycin HCl 1,500 mg/ (Sodium Chloride) 500 mls @ 333.3 mls/hr IV Q12H [facility] Last Infusion: 06/22/17 12:00 Dose: Infused Lorazepam (Ativan) 0.5 mg IV Q4HP PRN PRN Reason: ANXIETY/SEDATION Last Admin: 06/22/17 05:42 Dose: 0.5 mg Ondansetron HCl (Zofran) 4 mg IV Q4-6HP PRN PRN Reason: Nausea And Vomiting Oseltamivir Phosphate (Tamiflu) 75 mg PO BID [facility] Stop: 06/24/17 09:01 Last Admin: 06/22/17 09:49 Dose: 75 mg Pantoprazole Sodium (Protonix) 40 mg PO [facility] Last Admin: 06/22/17 09:49 Dose: 40 mg Prednisone (Prednisone) 40 mg PO [facility] Last Admin: 06/22/17 09:49 Dose: 40 mg Sodium Chloride (Saline Flush) 10 ml IV Q8 [facility] Last Admin: 06/22/17 13:58 Dose: 10 ml Throat Lozenges (Cepacol) 1 lozenge PO PRN PRN PRN Reason: Sore Throat Last Admin: 06/22/17 09:49 Dose: 1 lozenge Vancomycin HCl (Vancomycin Per Pharmacy) 1 order IV [facility] Medical - PN: A/P - Time Spent With Patient Total time spent is greater than 50% in coordination of care (as documented) at patient's floor/unit and/or counseling patient: - Narrative A/P Narrative: A/P Acute Hypoxic Resp failure: on bipap overnight, on 3 L oxygen via [place] this AM, clinically improving. plan to wean off as tolerated. Pneumonia: Tor interstitial pneumonia, etiology likely viral with secondary bacterial infection (h influenzae on sputum cx) . d/c vancomycin, conitnue rest. Sepsis: improving, improving wbc could be response to steroids, Repeat X ray shows some improvement in Chest x ray. Asthma exacerbtaion: on iv steroids, and duonebs, breathing is better, continue same, on oral prednisone. anxiety: ativan prn DVT enoxaparin sq regular diet Full code. Medical - PN: Qual - VTE Deep Vein Thrombosis/Pulmonary Embolism Present on Admission: No
[2017-06-22] MEDS ORDERED: LORazepam 2 MG/ML VIAL IV PRN (16:45)
[2017-06-22] MEDS ORDERED: guaiFENesin 600 MG TAB.SR.12H PO PRN (16:45)
[2017-06-22] MEDS ORDERED: BENZOCAINE/MENTHOL 1 LOZENGE PO PRN (16:45)
[2017-06-22] MEDS ORDERED: ONDANSETRON 4 MG/2 ML VIAL IV PRN (16:45)
[2017-06-23] MEDS: IPRATROPIUM/ALBUTEROL 3 ML AMPUL.NEB NEB SCH ×8 (03:29→23:54)
[2017-06-23 05:54] LABS: Basophils # (Auto) 0.1 K/mcL (0.0-0.3); Basophils % (Auto) 0.4 % (0.0-2.0); Eosinophils # (Auto) 0 K/mcL (0.0-0.7); Eosinophils % (Auto) 0 % (0.0-7.0); Granulocytes % (Auto) 77.7 % (38.0-78.0); Lymphocytes # (Auto) 2.3 K/mcL (1.5-4.8); Lymphocytes % (Auto) 16.5 % (15.5-49.0); Mean Cell Volume 90.4 fL (80.0-100.0); Mean Corpuscular Hemoglobin 29.8 pg (26.0-34.0); Monocytes # (Auto) 0.8 K/mcL (0.1-0.9); Monocytes % (Auto) 5.4 % (1.0-12.0); Platelet Count 424 K/mcL (140-440); RBC 4.84 M/mcL (4.50-5.90); Red Cell Distribution Width 13.8 % (11.5-14.5)
[2017-06-23] MEDS: ACETAMINOPHEN 325 MG TABLET PO PRN (06:06)
[2017-06-23] MEDS: 0.9 % SODIUM CHLORIDE 10 ML SYRINGE IV SCH ×3 (06:06→22:02)
[2017-06-23 06:23] LABS: ALT/SGPT 41 U/l (0-40); Albumin 3.1 gm/dL (3.2-5.2); Albumin/Globulin Ratio 0.9 (1.0-2.3); Alkaline Phosphatase 83 U/L (39-117); Bilirubin,Direct < 0.2 mg/dL (0.0-0.3); Blood Urea Nitrogen 18 mg/dl (6-20); Gamma Glutamyl Transpeptidase 61 U/L (8-61); Uric Acid 4.5 mg/dL (2.5-8.0)
[2017-06-23] MEDS: PANTOPRAZOLE 40 MG TABLET PO SCH (07:13)
[2017-06-23] MEDS: ENOXAPARIN 40 MG/0.4 ML SYRINGE SQ SCH (08:19)
[2017-06-23] MEDS: predniSONE 20 MG TABLET PO SCH (08:19)
[2017-06-23] MEDS: OSELTAMIVIR PHOSPHATE 75 MG CAPSULE PO SCH ×2 (08:19→21:59)
[2017-06-23] MEDS ORDERED: AZITHROMYCIN 250 MG TABLET PO SCH (09:00)
[2017-06-23] MEDS: cefTRIAXone 2 GM VIAL IV SCH (10:21)
--- NOTE | 2017-06-23 11:29 | XRay Report ---
CLINICAL INFORMATION: Follow up diffuse interstitial ammonia COMPARISON: Multiple chest x-rays the apex of 10/21/2013 including the most recent two days prior 06/21/2017 FINDINGS: Heart size, mediastinum and pulmonary vessels are normal. The lung volumes remain moderately elevated. Diffuse interstitial disease throughout both lungs has improved from the two most recent studies with only mild residual. No focal pulmonary lesions. No definite effusions - blunting of both costophrenic angles appears to be chronic. Bones and soft tissues are normal. IMPRESSION: Continued improvement in mild diffuse interstitial infiltrates findings most compatible with viral pneumonitis Interpreted and Authenticated by: Eliceo Sequeira 06/23/17
--- NOTE | 2017-06-23 15:10 | Internal Med Progress Note ---
Medical - PN: Subj Patient information: Note initiated : 06/23/17 at 3:07 pm Service Date, if different from initiated Date: [] Patient: Austin Landry a 46 y/o M admitted on 06/19/17 for Flu/Hypoxic Respiratory Failure, Pneumonia, Sepsis. Chief Complaint: [] Interval history: Mr. Landry is a 46 year old Male with h/o PTSD/ h/o asthma, presents to the ER today with complaints of shortness of breath going on for the last 2 weeks. The patient notes that he has not been feeling well over the last 2 weeks, he had sick contacts with flu like symptoms and he also developed same, he was seen by his PCP and given 5 day course of tamiflu which he took, he finished his course 4 days ago, since then he has not been feeling well, he notes his breatihing has gotten worse, his is having headache and dizziness, abdominal pain, poor appetitie and worsening shortness of breath. He notes he is coughing up large amounts of sputum. Denies any hemoptysis. Given his worsening condition he decided to c ome to the ER for further evaluation. In the ER he was noted to be afebrile and tachcardic and tachypenic, he had elevated Wbc count to 23K, his lac was normal, HR 125, RR 25, his Chest X ray showed bi interstitial pneumonia. ABG was 7.46/40/57 The patient on my exam was in mild to moderate resp distress with tor exp wheezing, was admitted to the PCU for further management. Jun 20 Patient seen examined, still has cough,b ut feels much better was on bipap all night this AM on 7-8L oxygen but much less tachypenic wbc however worsened today,b ut pt is clinically better. Jun 21 patient seen examined, no acute overnight events off bipap but still on 4 L oxygen cough and expectoration better sputum cx shows h influenza still on iv steroids wbc worsened today, but clinicall patient is showing signs of improvement. xfer to tele status. jun 22 patient seen examinedk had dry cough now, feels better, wbc trending down still has sob on exertion, on 3L oxygen on PO steroids. Jun 23 patient seen examined, no acute overnight issues tolerating po diet well still on oxygen still has cough and shortness of breath Pertinent ROS: Denies headache, dizziness Denies chest pain, palpitations stable cough and sob. improved since admission. Denies abdominal pain, nausea or vomiting. - Constitutional Vitals: Vital Signs Temp Pulse Resp BP Pulse Ox 95.4 F L 89 22 124/76 94 06/23/17 12:00 06/23/17 11:20 06/23/17 14:15 06/23/17 12:00 06/23/17 14:15 Period Temp Pulse Resp BP Sys/Haile Pulse Ox Last 24 Hr 93.5 F-98.4 F 68-100 14-22 118-134/76-92 84-94 Intake and Output 06/23/17 06/23/17 06/23/17 05:59 13:59 21:59 Intake Total 1000 / 1000 1200 / 1200 Output Total 1000 / 1000 Balance 1000 / 1000 200 / 200 Intake & Output: Intake & Output 06/23/17 06/23/17 06/23/17 05:59 13:59 21:59 Intake Total 1000 / 1000 1200 / 1200 Output Total 1000 / 1000 Balance 1000 / 1000 200 / 200 Intake: Oral 1000 / 1000 1200 / 1200 Output: Void Amount 1000 / 1000 Other: Meal Lunch Percent of Meal Consumed 100% # Voids 1 # Bowel Movements 1 Exam: Constitutional; Afebrile, cooperative, alert, not in distress. Eyes- No icterus, , No periorbital swelling Ears- Ext ear normal, hearing normal to conversation. Neck- Midline trachea, supple Respiratory system: Air Entry equal on both sides, tor crackles, much improved from yesterday, better air entry. CVS- Rate rhythm regular, S1,S2 heard, no gallop, no rub. 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 Medical - PN: Obj Da - Labs CBC & Chem 7: 06/23/17 04:20 06/23/17 04:20 Labs: Abnormal Lab Results 06/23/17 06/23/17 06/22/17 04:20 04:20 03:40 WBC 14.1 H Gran % Lymph % (Auto) Gran # 11.[address] [place] # (Auto) BUN 24 H Glucose 109 H 118 H Calcium 8.3 L 8.2 L Magnesium ALT 41 H Alkaline Phosphatase Albumin 3.1 L 2.9 L Globulin Albumin/Globulin Ratio 0.9 L 0.9 L 06/22/17 06/21/17 06/21/17 03:40 03:55 03:55 WBC 18.5 H 28.0 H Gran % 88.4 H 90.5 H Lymph % (Auto) 10.0 L 5.6 L Gran # 16.[address] [place] # (Auto) 1.1 H BUN 22 H Glucose 214 H Calcium 8.5 L Magnesium 2.7 H ALT Alkaline Phosphatase 118 H Albumin 2.4 L Globulin 4.1 H Albumin/Globulin Ratio 0.6 L Meds: Medications Acetaminophen (Tylenol) 650 mg PO Q4-6HP PRN PRN Reason: PAIN/FEVER > 101 Last Admin: 06/23/17 06:06 Dose: 650 mg Albuterol/Ipratropium (Duoneb) 3 ml NEB Q4HRT [facility] Last Admin: 06/23/17 11:03 Dose: 3 ml Ceftriaxone Sodium (Rocephin) 2 gm IV Q24H [facility] Last Admin: 06/23/17 10:21 Dose: 2 gm Enoxaparin Sodium (Lovenox) 40 mg SQ DAILY [facility] Last Admin: 06/23/17 08:19 Dose: 40 mg Guaifenesin (Mucinex) 600 mg PO BIDP PRN PRN Reason: Congestion Lorazepam (Ativan) 0.5 mg IV Q4HP PRN PRN Reason: ANXIETY/SEDATION Last Admin: 06/23/17 00:22 Dose: 0.5 mg Ondansetron HCl (Zofran) 4 mg IV Q4-6HP PRN PRN Reason: Nausea And Vomiting Oseltamivir Phosphate (Tamiflu) 75 mg PO BID [facility] Stop: 06/24/17 09:01 Last Admin: 06/23/17 08:19 Dose: 75 mg [facility]oprazole [facility] ([facility]) [facility] Last Admin: 06/23/17 07:13 Dose: 40 mg Prednisone (Prednisone) 40 mg PO [facility] Last Admin: 06/23/17 08:19 Dose: 40 mg Sodium Chloride (Saline Flush) 10 ml IV Q8 [facility] Last Admin: 06/23/17 14:44 Dose: 10 ml Throat Lozenges (Cepacol) 1 lozenge PO PRN PRN PRN Reason: Sore Throat Last Admin: 06/23/17 00:24 Dose: 1 lozenge Medical - PN: A/P - Time Spent With Patient Total time spent is greater than 50% in coordination of care (as documented) at patient's floor/unit and/or counseling patient: - Narrative A/P Narrative: A/P Acute Hypoxic Resp failure: on bipap overnight, on 3 L oxygen via [place] this AM, clinically improving. plan to wean off as tolerated. Pneumonia: Tor interstitial pneumonia, etiology likely viral with secondary bacterial infection (h influenzae on sputum cx) . d/c vancomycin, continue zithroamx and rocephin. x rya today shows continued improvement. Sepsis: improving, improving wbc Asthma exacerbtaion: on iv steroids, and duonebs, breathing is better, continue same, on oral prednisone. anxiety: ativan prn DVT enoxaparin sq regular diet Full code. Medical - PN: Qual - VTE Deep Vein Thrombosis/Pulmonary Embolism Present on Admission: No
[2017-06-24 05:41] LABS: Basophils # (Auto) 0 K/mcL (0.0-0.3); Basophils % (Auto) 0.2 % (0.0-2.0); Eosinophils # (Auto) 0.1 K/mcL (0.0-0.7); Eosinophils % (Auto) 0.6 % (0.0-7.0); Granulocytes % (Auto) 72.9 % (38.0-78.0); Lymphocytes # (Auto) 3.2 K/mcL (1.5-4.8); Lymphocytes % (Auto) 21.9 % (15.5-49.0); Mean Cell Volume 90.2 fL (80.0-100.0); Mean Corpuscular HGB Conc 33.3 g/dL (31.0-36.0); Monocytes # (Auto) 0.6 K/mcL (0.1-0.9); Monocytes % (Auto) 4.4 % (1.0-12.0); Platelet Count 426 K/mcL (140-440); RBC 5.05 M/mcL (4.50-5.90); Red Cell Distribution Width 13.7 % (11.5-14.5)
[2017-06-24 06:10] LABS: ALT/SGPT 46 U/l (0-40); Albumin 3.1 gm/dL (3.2-5.2); Albumin/Globulin Ratio 0.9 (1.0-2.3); Alkaline Phosphatase 77 U/L (39-117); Bilirubin,Direct < 0.2 mg/dL (0.0-0.3); Blood Urea Nitrogen 19 mg/dl (6-20); Gamma Glutamyl Transpeptidase 63 U/L (8-61); Uric Acid 4.5 mg/dL (2.5-8.0)
[2017-06-24] MEDS: PANTOPRAZOLE 40 MG TABLET PO SCH (06:40)
[2017-06-24] MEDS: 0.9 % SODIUM CHLORIDE 10 ML SYRINGE IV SCH (06:40)
[2017-06-24] MEDS: ACETAMINOPHEN 325 MG TABLET PO PRN (06:40)
[2017-06-24] MEDS: IPRATROPIUM/ALBUTEROL 3 ML AMPUL.NEB NEB SCH ×2 (07:30→13:24)
[2017-06-24] MEDS: ENOXAPARIN 40 MG/0.4 ML SYRINGE SQ SCH (08:07)
[2017-06-24] MEDS: cefTRIAXone 2 GM VIAL IV SCH (08:07)
[2017-06-24] MEDS: predniSONE 20 MG TABLET PO SCH (08:08)
[2017-06-24] MEDS: OSELTAMIVIR PHOSPHATE 75 MG CAPSULE PO SCH (08:08)
--- NOTE | 2017-06-24 13:28 | Discharge Summary ---
Medical - DS: Prov Patient information: Note initiated : 06/24/17 at 1:23 pm Service Date, if different from initiated Date: [] Patient: Austin Landry 46 y/o M admitted on 06/19/17 for Flu/Hypoxic Respiratory Failure, Pneumonia, Sepsis. Chief Complaint: [] Date of admission: 06/19/17 18:12 Discharge date: 06/24/17 Primary care physician: VINAY Avitia Consults: 06/19/17 16:52 Consult to Physician [CONS] Stat Comment: Consulting Provider: Lux Albright Reason For Exam: Physician to Consult Medical - DS: Meds - Discharge Medications Prescriptions: Albuterol Sulfate [Ventolin] 1 puff INH Q4-6HP PRN 90 Days #1 inhaler PRN Reason: Shortness Of Breath Cefdinir 300 mg PO BID #6 cap predniSONE [Prednisone] 40 mg PO [facility] #4 tab Active and Home Medications: Home Medications Ipratropium/Albuterol [Duoneb] 3 ml NEB Q4HRT #60 ampul.neb 05/16/17 [Rx Confirmed 06/20/17 Last Taken Unknown] Citalopram [Celexa] 20 mg PO DAILY 06/20/17 [History Confirmed 06/20/17 Last Taken Unknown] Cefdinir 300 mg PO BID #6 cap 06/24/17 [Rx Last Taken Unknown] predniSONE [Prednisone] 40 mg PO [facility] #4 tab 06/24/17 [Rx Last Taken Unknown] Medical - DS: Hosp Hospital course: DISCHARGE DIAGNOSES * Acute Hypoxic Resp failure secondary to pneumonia: clinical resolution noted. Now on room air after initial management on BiPAP. * Community-acquired Pneumonia: Jenaro interstitial pattern, etiology likely viral with secondary bacterial infection (h influenzae on sputum cx) covered with Rocephin/azithromycin. status post 5 days Tamiflu. clinical improvement noted or interval imaging. Continue additional 3 days third-generation cephalosporin * Sepsis: clinically resolved. White count down from 23->14.4 * acute asthma exacerbation continue bronchodilators as needed.continue additional 2 days oral prednisone BRIEF HOSPITAL COURSE Mr. Landry is a 46 year old Male with h/o PTSD/ h/o asthma, presents to the ER today with complaints of shortness of breath going on for the last 2 weeks. The patient notes that he has not been feeling well over the last 2 weeks, he had sick contacts with flu like symptoms and he also developed same, he was seen by his PCP and given 5 day course of tamiflu which he took, he finished his course 4 days ago, since then he has not been feeling well, he notes his breatihing has gotten worse, his is having headache and dizziness, abdominal pain, poor appetitie and worsening shortness of breath. He notes he is coughing up large amounts of sputum. Denies any hemoptysis. Given his worsening condition he decided to c ome to the ER for further evaluation. In the ER he was noted to be afebrile and tachcardic and tachypenic, he had elevated Wbc count to 23K, his lac was normal, HR 125, RR 25, his Chest X ray showed bi interstitial pneumonia. ABG was 7.46/40/57 The patient on my exam was in mild to moderate resp distress with jenaro exp wheezing, was admitted to the PCU for further management. Jun 20 Patient seen examined, still has cough,b ut feels much better was on bipap all night this AM on 7-8L oxygen but much less tachypenic wbc however worsened today,b ut pt is clinically better. Jun 21 patient seen examined, no acute overnight events off bipap but still on 4 L oxygen cough and expectoration better sputum cx shows h influenza still on iv steroids wbc worsened today, but clinicall patient is showing signs of improvement. xfer to tele status. jun 22 patient seen examinedk had dry cough now, feels better, wbc trending down still has sob on exertion, on 3L oxygen on PO steroids. Jun 23 patient seen examined, no acute overnight issues tolerating po diet well still on oxygen still has cough and shortness of breath 06/24-patient getting remarkably improved. Clinical resolution of shortness of breath. Ambulating. On room air. No overnight fever chills chest pain. Able to talk in full sentences. Discharge instructions discussed with advice to continue steroids and oral antibiotics along with inhaled bronchodilators as needed. Patient was recommended to follow primary care physician. Discharge diagnosis: . - Time Spent with Patient Total time spent providing and/or coordinating discharge services: Greater than 30 minutes Medical - DS: Exam - Constitutional Vitals: Vital Signs Temp Pulse Pulse Resp BP BP Pulse Ox 06/24/17 13:09 94 H 95 06/24/17 11:31 96.1 F L 89 16 120/84 91 06/24/17 10:54 96 H 91 06/24/17 09:13 100 H 20 92 06/24/17 08:20 100 H 91 06/24/17 07:26 97.3 F 72 16 122/88 92 06/24/17 06:33 92 06/24/17 06:22 94 06/24/17 06:21 97.8 F 06/24/17 04:00 95.8 F L 79 22 112/82 92 06/23/17 23:28 95.1 F L 71 22 116/76 92 06/23/17 19:35 80 20 94 06/23/17 19:09 95.7 F L 80 20 118/82 94 06/23/17 19:01 94 06/23/17 17:23 98.6 F 06/23/17 15:52 95.8 F L 18 128/76 91 06/23/17 15:21 88 20 06/23/17 14:15 22 94 Intake and Output 06/23/17 06/24/17 06/24/17 21:59 05:59 13:59 Intake Total 880 / 880 750 / 750 1540 / 1540 Output Total 825 / 825 975 / 975 975 / 975 Balance 55 / 55 -225 / -225 565 / 565 Intake: Oral 880 / 880 750 / 750 1540 / 1540 Output: Void Amount 825 / 825 975 / 975 975 / 975 Other: Meal Dinner Lunch Percent of Meal Consumed 100% 100% Feeding Ability Independent Independent # Voids 1 Weight 200 lb Medical - DS: Data Labs on day of discharge: Labs from last 24 hours 06/24/17 06/24/17 04:20 04:20 WBC 14.4 H RBC 5.05 Hgb 15.2 Hct 45.6 MCV 90.2 MCH 30.0 MCHC 33.3 RDW 13.7 Plt Count 426 MPV 8.1 Gran % 72.9 Lymph % (Auto) 21.9 [place] % (Auto) 4.4 Eos % (Auto) 0.6 Baso % (Auto) 0.2 Gran # 10.5 H Lymph # (Auto) 3.2 [place] # (Auto) 0.6 Eos # (Auto) 0.1 Baso # (Auto) 0 Sodium 137 Potassium 4.1 Chloride 99 Carbon Dioxide 23 Anion Gap 15.0 BUN 19 Creatinine 0.8 GFR Calculation 108 Glucose 104 Uric Acid 4.5 Calcium 8.3 L Phosphorus 3.4 Magnesium 2.2 Total Bilirubin 0.4 Direct Bilirubin < 0.2 GGT 63 H AST 30 ALT 46 H Alkaline Phosphatase 77 Lactate Dehydrogenase 186 Total Protein 6.5 Albumin 3.1 L Globulin 3.4 Albumin/Globulin Ratio 0.9 L Triglycerides 130 Preliminary micro results at discharge 06/19/17 16:01 Blood Culture - Preliminary Blood 06/19/17 15:58 Blood Culture - Preliminary Blood Medical - DS: A/P - Patient/Caregiver Discharge Instructions Activity: increase activity as tolerated, resume usual activities as tolerated Diet: Regular Diet Additional Instructions: Follow-up PCP in 5-7 days Antibiotics for additional 3 days continue prednisone for additional 2 days Return to ED if worsening shortness of breath chest pain fever Reviewed risk and side effect profile of medications including antibiotics. Side effect may include mild to severe reaction including rash, diarrhea, cdiff and even which can be prevented by close follow-up with PCP and monitoring for side effects Refrain from smoking and alcohol Continue diet and activity as advised Discussed importance of medication adherence Please review medication list with patient prior to discharge Please schedule follow-up with PCP/Providers prior to discharge and provide printouts Portions of this chart may have been created with [employer] voice recognition software. Occasional wrong-word or ?sound-like? substitutions may have occurred due to the inherent limitations of voice recognition software. Please read the chart carefully and recognize, using context, where the substitutions have occurred. CC- PCP Prescriptions: Albuterol Sulfate [Ventolin] 1 puff INH Q4-6HP PRN 90 Days #1 inhaler PRN Reason: Shortness Of Breath Cefdinir 300 mg PO BID #6 cap predniSONE [Prednisone] 40 mg PO [facility] #4 tab - Follow up Plan Follow up with: Mayo Da Silva ARNP [Primary Care Provider] - Disposition: Home, Self-Care Prognosis: Undetermined Rehab Potential: Fair I certify that the patient requires SNF services: No Overall status at discharge: patient is progressing back to baseline Medical - DS: Qual - VTE Deep Vein Thrombosis/Pulmonary Embolism Present on Admission: No
[2017-06-24] MEDS ORDERED: PNEUMOCOCCAL 23-VAL P-SAC VAC 0.5 ML VIAL IM ONE (13:30)
== END 2017-06-24 15:35 | disposition home or self-care (01) | DRG 871 ==
LOC: ED 13:06 → ICU 18:12 → MEDSUR 06-22 19:02
PROVIDERS: ADMIT Internal Medicine; ATTEND Internal Medicine